=== PATIENT | female | born 1985 | race Caucasian/White ===

== ENCOUNTER 2016-08-01 15:26 | Outpatient (CLI) ==
[2012-11-20 05:42] VITALS: TEMP 98
[2016-05-18 16:55] VITALS: BMI 22.5
== END 2016-08-01 15:27 | disposition home or self-care (01) ==
LOC: LAB 15:26
PROVIDERS: ATTEND Nurse Practitioner Family
DX: A54.9 Gonococcal infection, unspecified (principal); Z09 Encounter for follow-up examination after completed treatment for conditions other than malignant neoplasm
CPT/HCPCS: 87800

== ENCOUNTER 2016-09-04 13:59 | Emergency (ER) ==
[2016-09-04 14:09] VITALS: BP 134/88; TEMP 98.8; BMI 22.1
[2016-09-04] MEDS ORDERED: DECADRON 4 MG/ML SDV IM STA (14:18)
[2016-09-04] MEDS ORDERED: TORADOL IM STA (14:18)
[2016-09-04] MEDS ORDERED: AUGMENTIN 500-125 MG TAB PO STA (14:18)
--- NOTE | 2016-09-04 14:21 | ED.PDOC ---
General ED Provider: Dr. LUIGI TURNER Chief Complaint: Earache Stated Complaint: ear pain, sore throat, head hurts. sinus draiange, coughing up some yellow stuff, my left eye was matting. Time Seen by Physician: 14:19 Mode of Arrival: Walk-In Information Source: Patient Primary Care Provider: HALIMA REMY Nursing and Triage Documentation Reviewed and Agree: Yes EENT Complaint Exam - Ear Complaint/Exam Symptoms Are: Still present Timing: Constant Initial Severity: Mild Current Severity: Mild Character: Reports: Unable to describe Alleviating: Reports: None Associated Signs and Symptoms: Reports: Sore throat, URI symptoms. Denies: Ear trauma, Ear swelling, Discharge, Fever, Hearing loss, Bleeding, Headache, Foreign body sensation, Rash, Pain to external ear, Pain to external face Related History: Reports: Similar Episode Ear Surgical History: None Vesicles to External Pinna: No Vesicles to Tragus: No TMJ Tenderness: None Mastoid Tenderness: None Tragal Tenderness: None External Canal: Normal Tympanic Membrane: Erythema, Bulging Differential Diagnoses: Otitis Media, URI Review of Systems - Review Of Systems Constitutional: Reports: Malaise Eyes: Reports: No symptoms Ears, Nose, Mouth, Throat: Reports: Nose discharge, Throat pain Respiratory: Reports: Cough Cardiac: Reports: No symptoms GI: Reports: No symptoms : Reports: No symptoms Musculoskeletal: Reports: No symptoms Skin: Reports: No symptoms Neurological: Reports: No symptoms Endocrine: Reports: No symptoms Hematologic/Lymphatic: Reports: No symptoms All Other Systems: Reviewed and Negative Past Medical History - Past Medical History Previously Healthy: Yes Endocrine: Reports: None Cardiovascular: Reports: None Respiratory: Reports: None Hematological: Reports: None Gastrointestinal: Reports: Other Genitourinary: Reports: None Neuro/Psych: Reports: None Musculoskeletal: Reports: Back Pain Cancer: Reports: None Last Menstrual Period: N/A - Surgical History General Surgical History: Reports: Tubal ligation, Tonsillectomy - Family History Family History: Reports: Other (mother with COPD), Unknown - Social History Smoking Status: Current every day smoker, Heavy tobacco smoker Smoking Cessation Counseling Time: > 3 min - 10 min Hx Substance Use: Yes (MARIJUANA) Alcohol Screening: Occasionally - Immunizations Tetanus Shot up to Date: Yes Physical Exam - Physical Exam Appearance: Ill-appearing, Thin Eyes: TERRI, EOMI, Conjunctiva clear ENT: TMs Occluded, Erythema Respiratory: Airway patent, Breath sounds clear, Breath sounds equal, Respirations nonlabored Cardiovascular: RRR, Pulses normal, No rub, No murmur GI/: Soft, Nontender, No masses, Bowel sounds normal, No Organomegaly Musculoskeletal: Normal strength, ROM intact, No edema, No calf tenderness Skin: Warm, Dry, Normal color Neurological: Sensation intact, Motor intact, Reflexes intact, Cranial nerves intact, Alert, Oriented Psychiatric: Affect appropriate, Mood appropriate Critical Care Note - Critical Care Note Total Time (mins): 0 Course - Course Orders, Labs, Meds: Orders Category Date Time Status Amoxicillin/Potassium Clav [Augmentin 500-125 mg Tab] MEDS 09/04/16 14:18 Stat 1 tab PO ONCE STA Dexamethasone 4 mg/ml Inj [Decadron 4 mg/ml Sdv] MEDS 09/04/16 14:18 Stat 4 mg IM ONCE STA Ketorolac Tromethamine [Toradol] MEDS 09/04/16 14:18 Stat 30 mg IM ONCE STA Vital Signs: Temp Pulse Resp BP Pulse Ox 09/04/16 14:00 98.8 F 91 H 18 134/88 100 Departure - Departure Time of Disposition: 14:23 Disposition: HOME SELF-CARE Discharge Problem: Otitis media Qualifiers: Otitis media type: serous Laterality: bilateral Chronicity: acute Recurrence: not specified as recurrent Qualifier Code: (H65.03) Acute serous otitis media, bilateral Instructions: Otitis Media (ED) Condition: Stable Pt referred to PMD for follow-up: Yes Additional Instructions: Take medication with food Increase hydration. Prescriptions: Amoxicillin/Potassium Clav [Augmentin 500-125 mg Tab] 1 tab PO Q12HR #20 tablet Prednisone 10 mg PO BIDWM #14 tablet Allergies/Adverse Reactions: Allergies semi-sweet chocolate Adverse Reaction (Uncoded 09/04/16 14:11) skin breakout Home Medications: Ambulatory Orders Hydrocodone Bit/Acetaminophen [[place] 7.5-325] 7.5 - 325 mg PO BID 07/04/15 Amoxicillin/Potassium Clav [Augmentin 500-125 mg Tab] 1 tab PO Q12HR #20 tablet 09/04/16 Multivit with Calcium,Iron,Min [Multivitamins V-[id number]] 1 each PO Prednisone 10 mg PO BIDWM #14 tablet 09/04/16 Disposition Discussed With: Patient
== END 2016-09-04 14:45 | disposition home or self-care (01) ==
LOC: ED 13:59
DX: H65.03 Acute serous otitis media, bilateral (principal); F17.210 Nicotine dependence, cigarettes, uncomplicated
CPT/HCPCS: 96372; 99282

== ENCOUNTER 2017-05-16 18:05 | Emergency (ER) ==
[2017-05-16 18:18] VITALS: BP 142/89; TEMP 97.8; BMI 23.1
--- NOTE | 2017-05-16 18:51 | ED.PDOC ---
General ED Provider: Dr. DEVANG DIEHL Chief Complaint: Finger Laceration Stated Complaint: finger laceration right index Time Seen by Physician: 18:20 (bartolo present at all times photos attached ) Mode of Arrival: Walk-In Information Source: Patient Exam Limitations: No limitations Primary Care Provider: HALIMA REMY Nursing and Triage Documentation Reviewed and Agree: Yes Skin Complaint Exam - Lac/Torso/Upper Ext. Complaint/Exam Location of Injury: Right (index) Mechanism of Injury: Laceration Onset/Duration: 1 hr Symptoms Are: Still present Initial Severity: Mild (bu a sharp metal) Current Severity: Mild Aggravating: None Alleviating: None Associated Signs and Symptoms: Denies: Fever, Chills, Erythema, Numbness, Tingling Differential Diagnoses: Laceration Review of Systems - Review Of Systems Constitutional: Reports: No symptoms Eyes: Reports: No symptoms Ears, Nose, Mouth, Throat: Reports: No symptoms Respiratory: Reports: No symptoms Cardiac: Reports: No symptoms GI: Reports: No symptoms : Reports: No symptoms Musculoskeletal: Reports: No symptoms Skin: Reports: No symptoms Neurological: Reports: No symptoms Endocrine: Reports: No symptoms Hematologic/Lymphatic: Reports: No symptoms All Other Systems: Reviewed and Negative Past Medical History - Past Medical History Previously Healthy: Yes Endocrine: Reports: None Cardiovascular: Reports: None Respiratory: Reports: None Hematological: Reports: None Gastrointestinal: Reports: Other Genitourinary: Reports: None Neuro/Psych: Reports: None Musculoskeletal: Reports: Back Pain Cancer: Reports: None Last Menstrual Period: today - Surgical History General Surgical History: Reports: Tubal ligation, Tonsillectomy - Family History Family History: Reports: Other (mother with COPD), Unknown - Social History Smoking Status: Current every day smoker, Heavy tobacco smoker Hx Substance Use: No (uses [place] 19) Alcohol Screening: None - Immunizations Tetanus Shot up to Date: Yes (within 5 years) Physical Exam - Physical Exam Appearance: Well-appearing, No pain distress, Well-nourished Eyes: TERRI, EOMI, Conjunctiva clear ENT: Ears normal, Nose normal, Oropharynx normal Respiratory: Airway patent, Breath sounds clear, Breath sounds equal, Respirations nonlabored Cardiovascular: RRR, Pulses normal, No rub, No murmur GI/: Soft, Nontender, No masses, Bowel sounds normal, No Organomegaly Musculoskeletal: Normal strength, ROM intact, No edema, No calf tenderness Skin: Warm, Dry (1cm abrasion RIGHT INDEX 1 MM DEEP 1MM WIDE CLEAN NO f/b ) Neurological: Sensation intact, Motor intact, Reflexes intact, Cranial nerves intact, Alert, Oriented Psychiatric: Affect appropriate, Mood appropriate Critical Care Note - Critical Care Note Total Time (mins): 0 Course - Course Vital Signs: Temp Pulse Resp BP Pulse Ox 05/16/17 18:06 97.8 F 85 20 142/89 H 100 Departure - Departure Time of Disposition: 18:51 Disposition: HOME SELF-CARE Discharge Problem: Laceration of finger Instructions: Laceration (ED) Condition: Good Pt referred to PMD for follow-up: Yes Additional Instructions: Please call your Family Physician as soon as possible to schedule a follow-up appointment. Allergies/Adverse Reactions: Allergies semi-sweet chocolate Adverse Reaction (Uncoded 09/04/16 14:11) skin breakout Home Medications: Ambulatory Orders Hydrocodone Bit/Acetaminophen [[place] 7.5-325] 7.5 - 325 mg PO BID 07/04/15 Multivit with Calcium,Iron,Min [Multivitamins V-[id number]] 1 each PO DAILY
== END 2017-05-16 19:15 | disposition home or self-care (01) ==
LOC: ED 18:05
DX: S61.210A Laceration without foreign body of right index finger without damage to nail, initial encounter (principal); F17.210 Nicotine dependence, cigarettes, uncomplicated; W26.8XXA Contact with other sharp object(s), not elsewhere classified, initial encounter
CPT/HCPCS: 99283

== ENCOUNTER 2017-09-01 11:17 | Emergency (ER) ==
[2017-09-01 11:30] VITALS: BP 117/80; TEMP 97; BMI 21.1
--- NOTE | 2017-09-01 13:44 | ED.PDOC ---
General ED Provider: Dr. DEVANG DIEHL Chief Complaint: Urinary Problem Stated Complaint: dysuria Time Seen by Physician: 11:17 Mode of Arrival: Walk-In Information Source: Patient Exam Limitations: No limitations Primary Care Provider: HALIMA REMY Nursing and Triage Documentation Reviewed and Agree: Yes Reviewed sepsis parameters & appropriate labs ordered?: Yes System Inflammatory Response Syndrome: Not Applicable Sepsis Protocol: For patient's 13 years and over: Temp is 96.8 and below OR 101 and greater Pulse >90 BPM Resp >20/minute Acutely Altered Mental Status Are patient's symptoms suggestive of a new infection, such as: -Pneumonia -Skin, Soft Tissue -Endocarditis -UTI -Bone, Joint Infection -Implantable Device -Acute Abdominal Infection -Wound Infection -Meningitis -Blood Stream Catheter Infection -Unknown System Inflammatory Response Syndrome: Not Applicable Complaint Exam - Complaint/Exam Patient Complains of: Reports: Dysuria Onset/Duration: 1 day Symptoms Are: Still present Timing: Intermittent Initial Severity: Mild Current Severity: Mild Location of Pain: Reports: Left, Flank Character: Reports: Cloudy urine Aggravating: Reports: None Alleviating: Reports: None Associated Signs and Symptoms: Reports: Dysuria. Denies: Diaphoresis, Back pain , Fever, Hematuria, Constipation, Blood in stool, Rectal pain, Appetite change, Nausea, Vomiting, Decreased urine output, Increased urine frequency, Increased thirst, Decreased activity, Lethargy, Abdominal Pain, Bubble bath use, Vaginal bleeding, Vaginal discharge, Genital swelling, Genital blisters, Retained foreign body Ovarian Torsion Risk Factors: Reports: Reproductive age Surgical Obstruction Risk Factors: Reports: None RH Status: Unknown Review of Systems - Review Of Systems Constitutional: Reports: No symptoms Eyes: Reports: No symptoms Ears, Nose, Mouth, Throat: Reports: No symptoms Respiratory: Reports: No symptoms Cardiac: Reports: No symptoms GI: Reports: No symptoms : Reports: Dysuria Musculoskeletal: Reports: No symptoms Skin: Reports: No symptoms Neurological: Reports: No symptoms Endocrine: Reports: No symptoms Hematologic/Lymphatic: Reports: No symptoms All Other Systems: Reviewed and Negative Past Medical History - Past Medical History Previously Healthy: Yes Endocrine: Reports: None Cardiovascular: Reports: None Respiratory: Reports: None Hematological: Reports: None Gastrointestinal: Reports: Other Genitourinary: Reports: None Neuro/Psych: Reports: None Musculoskeletal: Reports: Back Pain Cancer: Reports: None Last Menstrual Period: 07/23 - Surgical History General Surgical History: Reports: Tubal ligation, Tonsillectomy - Family History Family History: Reports: Other (mother with COPD), Unknown - Social History Smoking Status: Current some day smoker Hx Substance Use: Yes ([facility]) Alcohol Screening: None - Immunizations Tetanus Shot up to Date: Yes Physical Exam - Physical Exam Appearance: Well-appearing, No pain distress, Well-nourished Eyes: TERRI, EOMI, Conjunctiva clear ENT: Ears normal, Nose normal, Oropharynx normal Respiratory: Airway patent, Breath sounds clear, Breath sounds equal, Respirations nonlabored Cardiovascular: RRR, Pulses normal, No rub, No murmur GI/: Soft, Nontender, No masses, Bowel sounds normal, No Organomegaly Musculoskeletal: Normal strength, ROM intact, No edema, No calf tenderness Skin: Warm, Dry, Normal color Neurological: Sensation intact, Motor intact, Reflexes intact, Cranial nerves intact, Alert, Oriented Psychiatric: Affect appropriate, Mood appropriate Critical Care Note - Critical Care Note Total Time (mins): 0 Course - Course Orders, Labs, Meds: Lab Review 09/01/17 11:35 Urine Color Yellow Urine Clarity Cloudy Urine pH 6.0 Ur Specific [place] >=1.030 Urine Protein 1+ Urine Glucose (UA) Negative Urine Ketones Negative Urine Blood Trace-intact Urine Nitrite Negative Urine Bilirubin Negative Urine Urobilinogen 0.2 Ur Leukocyte Esterase Negative Urine Microscopic WBC 5-10 Ur Squamous Epith Cells 0-2 Urine Bacteria 4+ Urine Mucus Trace Orders Category Date Time Status CHLAMYDIA/GC AMPLIFICATION Stat LAB 09/01/17 11:35 Received URINALYSIS C & S IF INDICATED Stat LAB 09/01/17 11:35 Completed URINE CULTURE Stat LAB 09/01/17 11:35 Received Vital Signs: Temp Pulse Resp BP Pulse Ox 09/01/17 11:17 97 F L 75 16 117/80 98 Departure - Departure Time of Disposition: 13:44 Disposition: HOME SELF-CARE Discharge Problem: Urinary tract infectious disease Instructions: Urinary Tract Infection in Women (ED) Condition: Good Pt referred to PMD for follow-up: Yes IPMP verified?: No Additional Instructions: Please call your Family Physician as soon as possible to schedule a follow-up appointment. Allergies/Adverse Reactions: Allergies semi-sweet chocolate Adverse Reaction (Uncoded 09/04/16 14:11) skin breakout Home Medications: Ambulatory Orders Hydrocodone Bit/Acetaminophen [[place] 7.5-325] 7.5 - 325 mg PO BID 07/04/15
== END 2017-09-01 13:53 | disposition home or self-care (01) ==
LOC: ED 11:17
DX: N39.0 Urinary tract infection, site not specified (principal); F17.210 Nicotine dependence, cigarettes, uncomplicated
CPT/HCPCS: 36415; 81001; 87086; 87186; 87800; 99282

== ENCOUNTER 2017-12-26 11:10 | Outpatient (CLI) ==
[2012-11-20 05:42] VITALS: TEMP 98
== END 2017-12-26 11:11 | disposition home or self-care (01) ==
LOC: LAB 11:10
PROVIDERS: ATTEND Nurse Practitioner Family
DX: R76.8 Other specified abnormal immunological findings in serum (principal); Z00.00 Encounter for general adult medical examination without abnormal findings
CPT/HCPCS: 36415; 80053; 80061; 80074; 84443; 85025

== ENCOUNTER 2018-05-27 07:15 | Emergency (ER) ==
[2018-05-27 07:30] VITALS: BP 125/91; TEMP 96.2; BMI 24.0
--- NOTE | 2018-05-27 07:54 | ED.PDOC ---
General ED Provider: Dr. SARAH MARIA-ER Chief Complaint: Urinary Problem Stated Complaint: it hurts when i pee Time Seen by Physician: 07:20 Mode of Arrival: Walk-In Information Source: Patient Exam Limitations: No limitations Primary Care Provider: HALIMA REMY Nursing and Triage Documentation Reviewed and Agree: Yes Does patient meet sepsis criteria?: No System Inflammatory Response Syndrome: Not Applicable Sepsis Protocol: For patient's 13 years and over: Temp is 96.8 and below OR 101 and greater Pulse >90 BPM Resp >20/minute Acutely Altered Mental Status Are patient's symptoms suggestive of a new infection, such as: -Pneumonia -Skin, Soft Tissue -Endocarditis -UTI -Bone, Joint Infection -Implantable Device -Acute Abdominal Infection -Wound Infection -Meningitis -Blood Stream Catheter Infection -Unknown Complaint Exam - UTI Female Complaint/Exam Patient Complains of: Reports: Painful urination Onset/Duration: 24 hrs Symptoms Are: Still present Timing: Constant Initial Severity: Mild Current Severity: Mild Location of Pain: Reports: Suprapubic Associated Signs and Symptoms: Denies: Fever, Chills, Flank pain, Dyspareunia, Vaginal discharge CVA Tenderness: No Suprapubic Tenderness: No Differential Diagnoses: Cystitis Review of Systems - Review Of Systems Constitutional: Reports: No symptoms Eyes: Reports: No symptoms Ears, Nose, Mouth, Throat: Reports: No symptoms Respiratory: Reports: No symptoms Cardiac: Reports: No symptoms GI: Reports: No symptoms : Reports: Dysuria, Pain, Urgency Musculoskeletal: Reports: No symptoms Skin: Reports: No symptoms Neurological: Reports: No symptoms Endocrine: Reports: No symptoms Hematologic/Lymphatic: Reports: No symptoms All Other Systems: Reviewed and Negative Past Medical History - Past Medical History Previously Healthy: Yes Endocrine: Reports: None Cardiovascular: Reports: None Respiratory: Reports: None Hematological: Reports: None Gastrointestinal: Reports: Other Genitourinary: Reports: None Neuro/Psych: Reports: None Musculoskeletal: Reports: Back Pain Cancer: Reports: None Last Menstrual Period: may 11, 2018 - Surgical History General Surgical History: Reports: Tubal ligation, Tonsillectomy - Family History Family History: Reports: Other (mother with COPD), Unknown - Social History Smoking Status: Current every day smoker, Light tobacco smoker Hx Substance Use: Yes (marjuana) Alcohol Screening: None Physical Exam - Physical Exam Appearance: Well-appearing, No pain distress, Well-nourished Pain Distress: Mild Eyes: TERRI, EOMI, Conjunctiva clear ENT: Ears normal, Nose normal, Oropharynx normal Neck: Supple Respiratory: Airway patent Cardiovascular: RRR, Pulses normal, No rub, No murmur GI/: Soft, Nontender, No masses, Bowel sounds normal, No Organomegaly Musculoskeletal: Normal strength, ROM intact, No edema, No calf tenderness Skin: Warm, Dry, Normal color Neurological: Sensation intact, Motor intact, Reflexes intact, Cranial nerves intact, Alert, Oriented Psychiatric: Affect appropriate, Mood appropriate Critical Care Note - Critical Care Note Total Time (mins): 0 Course - Course Orders, Labs, Meds: Lab Review 05/27/18 07:30 Urine Color Yellow Urine Clarity Cloudy Urine pH 6.[address] 1.025 Urine Protein 1+ Urine Glucose (UA) Negative Urine Ketones Negative Urine Blood 1+ Urine Nitrite Positive Urine Bilirubin Negative Urine Urobilinogen 0.2 Ur Leukocyte Esterase 3+ Urine Microscopic RBC 0-2 Urine Microscopic WBC Tntc Ur Squamous Epith Cells 2-5 Urine Bacteria 2+ Orders Category Date Time Status URINALYSIS C & S IF INDICATED Stat LAB 05/27/18 07:30 Completed URINE CULTURE Stat LAB 05/27/18 07:30 Received Vital Signs: Temp Pulse Resp BP Pulse Ox 05/27/18 07:16 96.2 F L 96 H 20 125/91 H 99 Departure - Departure Time of Disposition: 07:52 Disposition: HOME SELF-CARE Discharge Problem: Urinary tract infectious disease Instructions: Urinary Tract Infection in Women (ED) Condition: Good Pt referred to PMD for follow-up: Yes IPMP verified?: No Additional Instructions: bactrim ds bid x 7 days---pyridium 200mg tid with food #6---f/u with pcp Allergies/Adverse Reactions: Allergies semi-sweet chocolate Adverse Reaction (Uncoded 05/27/18 07:23) skin breakout Home Medications: Ambulatory Orders Hydrocodone Bit/Acetaminophen [[place] 7.5-325] 7.5 - 325 mg PO BID 07/04/15 Disposition Discussed With: Patient
== END 2018-05-27 07:55 | disposition home or self-care (01) ==
LOC: ED 07:15
DX: N39.0 Urinary tract infection, site not specified (principal); F17.210 Nicotine dependence, cigarettes, uncomplicated
CPT/HCPCS: 81001; 87086; 87186; 99283

== ENCOUNTER 2018-06-11 18:20 | Emergency (ER) ==
[2018-06-11 18:24] VITALS: BP 117/79; TEMP 97.7; BMI 23.6
== END 2018-06-11 19:20 | disposition left against medical advice (07) ==
LOC: ED 18:20
DX: R31.9 Hematuria, unspecified (principal); F17.210 Nicotine dependence, cigarettes, uncomplicated
CPT/HCPCS: 81001